=== PATIENT | female | born 1950 | race Caucasian/White ===

== ENCOUNTER 2019-07-14 19:55 | Emergency (ER) | payer MEDICARE ==
[2019-07-14 20:23] VITALS: BP 144/77
--- NOTE | 2019-07-14 20:34 | UC ---
Complaint Female HPI - HPI Summary HPI Summary: sx present x1 week--lower abdominal "ache" on & off, low grade temp x2 days, denies any urinary symptoms, no N/V/D, no constipation but does have a history of diverticulitis and noticed increase pain with passing gas. and bowel movements. - History Of Current Complaint Chief Complaint: UCGeneralIllness Stated Complaint: URINARY COMPLAINT Time Seen by Provider: 07/14/19 20:28 Hx Obtained From: Patient ?: No Onset/Duration: Sudden Onset, Lasting Days Timing: Constant Severity Initially: Mild Severity Currently: Mild Pain Intensity: 2 Aggravating Factor(s): Urination - Allergies/Home Medications Allergies/Adverse Reactions: Allergies Allergy/AdvReac Type Severity Reaction Status Date / Time Penicillins Allergy Intermediate Rash Verified 07/14/19 20:23 Gplhmam-Ahl-Ojf Reductase AdvReac Leg Cramps Verified 07/14/19 20:23 Inhibitor Home Medications: Home Medications Aspirin EC TAB* [Ecotrin EC Low Dose 81 MG*] 81 mg PO BEDTIME 07/14/19 [History Confirmed 07/14/19] Cetirizine* [ZyrTEC 10 MG TAB*] 10 mg PO BEDTIME 07/14/19 [History Confirmed 12/25] Ciprofloxacin TAB* [Cipro 500 MG TAB*] 500 mg PO BID #13 tab 07/14/19 [Rx] Ezetimibe TAB* [Zetia TAB*] 10 mg PO BEDTIME 07/14/19 [History Confirmed ] Lisinopril TAB* [Prinivil TAB*] 10 mg PO BEDTIME 07/14/19 [History Confirmed 12/25] celeCOXIB CAP* [CeleBREX CAP*] 100 mg PO BEDTIME 07/14/19 [History Confirmed 12/25] PMH/Surg Hx/FS Hx/Imm Hx Previously Healthy: Yes - Surgical History Surgical History: Yes Surgery Procedure, Year, and Place: hysterectomy 1992. breast reduction 2005. gallbladder 1996. cataract - Family History Known Family History: Positive: Hypertension - Social History Alcohol Use: Rare Substance Use Type: None Smoking Status (MU): Former Smoker When Did the Patient Quit Smoking/Using Tobacco: 1992 Review of Systems All Other Systems Reviewed And Are Negative: Yes Gastrointestinal: Positive: Abdominal Pain Genitourinary: Positive: Negative Is Patient Immunocompromised?: No Physical Exam Triage Information Reviewed: Yes Appearance: Well-Appearing, Well-Nourished, Pain Distress Vital Signs: Initial Vital Signs Temp 98.4 F 07/14/19 20:18 Pulse 79 07/14/19 20:18 Resp 17 07/14/19 20:18 BP 144/77 07/14/19 20:18 Pulse Ox 100 07/14/19 20:18 Vital Signs Reviewed: Yes Eye Exam: Normal ENT Exam: Normal Dental Exam: Normal Neck exam: Normal Respiratory Exam: Normal Respiratory: Positive: Chest non-tender, Lungs clear, Normal breath sounds Cardiovascular Exam: Normal Cardiovascular: Positive: RRR, No Murmur, Pulses Normal Abdominal Exam: Normal Abdomen Description: Positive: CVA Tenderness (R) - neg, CVA Tenderness (L) - neg, Other: - LLQ tenderness, pain with gas movement Bowel Sounds: Positive: Present Musculoskeletal Exam: Normal Neurological Exam: Normal Psychological Exam: Normal Skin Exam: Normal Complaint Female Dx - Course Course Of Treatment: hx obtained, exam performed ,meds reviewed, ua is clean - Differential Dx/Diagnosis Differential Diagnosis/HQI/PQRI: Urinary Tract Infection Provider Diagnosis: Diverticulitis Discharge ED - Sign-Out/Discharge Documenting (check all that apply): Patient Departure All imaging exams completed and their final reports reviewed: No Studies - Discharge Plan Condition: Stable Disposition: HOME Patient Education Materials: Diverticulitis (ED), Diverticulitis Diet (ED) Referrals: No Primary Care Phys,NOPCP [Primary Care Provider] - Additional Instructions: 1. take the medication as prescribed. 2. Increase fluid intake 3. Follow the diverticulitis diet 4. FOllow up with GI if not improving on the medication - Billing Disposition and Condition Condition: STABLE Disposition: Home
[2019-07-14] MEDS ORDERED: Ciprofloxacin TAB* 500 MG PO ONE (20:42)
== END 2019-07-14 20:58 | disposition home or self-care (01) ==
LOC: UCCORT 19:55
DX: K57.92 Diverticulitis of intestine, part unspecified, without perforation or abscess without bleeding (principal); Z88.0 Allergy status to penicillin; Z88.8 Allergy status to other drugs, medicaments and biological substances; Z79.82 Long term (current) use of aspirin; Z87.891 Personal history of nicotine dependence
CPT/HCPCS: 81003; 99202; A9270-GY; G0463